=== PATIENT | male | born 1960 | race Caucasian/White ===

== ENCOUNTER 2020-10-11 14:02 | Emergency (ER) | payer OTHER ==
[2020-10-11 17:11] LABS: HEMOGLOBIN 14.9 gm/dl (14.0-17.5); RED BLOOD COUNT 4.57 M/UL (4.20-5.50); WHITE BLOOD COUNT 6.1 K/UL (4.5-11.0)
[2020-10-11 17:24] LABS: BUN/CREATININE RATIO 11 (0-10)
== END 2020-10-11 19:25 | disposition home or self-care (01) ==
LOC: ER1 14:02
PROVIDERS: Emergency Medicine
DX: U07.1 COVID-19 (principal); I10 Essential (primary) hypertension; K21.9 Gastro-esophageal reflux disease without esophagitis; Z90.49 Acquired absence of other specified parts of digestive tract
CPT/HCPCS: 36600; 71046; 80053; 82550; 82553; 82803; 83874; 84484; 85025; 85379; 86140; 87040; 99283; M0239

== ENCOUNTER → 2021-07-27 | Outpatient (CLI) | payer OTHER | LOC: CT 10:40 | DX: R10.814 Left lower quadrant abdominal tenderness (principal); N20.0 Calculus of kidney | CPT/HCPCS: Q9967 ==

== ENCOUNTER 2021-08-15 01:18 | Emergency (ER) | payer OTHER | END 2021-08-15 02:08 | disposition left against medical advice (07) | LOC: ER1 01:18 | DX: Z53.21 Procedure and treatment not carried out due to patient leaving prior to being seen by health care provider (principal) ==